=== PATIENT | female | born 1990 | race Caucasian/White ===

== ENCOUNTER 2021-10-27 10:17 | Emergency (ER) | payer BC, SELFPAY ==
[2021-10-27 10:23] VITALS: BP 142/94; PULSE 104; RESP 14; TEMP 36.1; O2SAT 99
[2021-10-27 10:30] VITALS: BP 142/94; PULSE 104; RESP 14; TEMP 36.1; O2SAT 99
--- NOTE | 2021-10-27 11:11 | ED.EAR ---
HPI - Ear Problem General Chief complaint: Ear Stated complaint: ear pain Time Seen by Provider: 10/27/21 11:12 Source: patient, RN notes reviewed and old records reviewed Mode of arrival: ambulatory Limitations: no limitations History of Present Illness HPI Narrative: 30 year old female presents to [facility] care with 3-4 day history of some right ear drainage which is clear with some pain and muffled hearing bilaterally. Patient denies any cough, fevers or any nasal discharge, reports some discomfort which is minimal to her throat but denies any increased pain with swallowing. Patient has been taking Ibuprofen for her symptoms.Patient has not had COVID or influenza vaccines. MD Complaint: ear pain, ear discharge (right) and decreased hearing Location: right ear Treatment prior to arrival: oral analgesic Related Data Allergies Allergy/AdvReac Type Severity Reaction Status Date / Time amoxicillin [From Amoxil] AdvReac Nausea Verified 10/27/21 10:30 Review of Systems Review of Systems: CONSTITUTIONAL: Denies fever, chills, or sweats. EYES: Denies visual changes, redness, or discharge. ENT Denies rhinorrhea,no congestion, some sore throat,right otalgia, hearing muffled bilaterally. CARDIOVASCULAR: Denies chest pain, palpitations, or edema. RESPIRATORY: Denies cough or dyspnea. GASTROINTESTINAL: Denies abdominal pain, nausea, vomiting, or diarrhea. GENITOURINARY: Denies dysuria or hematuria. SKIN: Denies rash or itching. MUSCULOSKELETAL: Denies back pain, joint pain, or myalgia. NEUROLOGIC: Denies headache, numbness, or weakness. PSYCHIATRIC: Denies anxiety or depression. All systems reviewed & are unremarkable except as noted in HPI and below PMFSH Past Medical History Medical History (Updated 10/28/21 @ 13:07 by Felicia Dunlap NP) Fracture, finger Surgical History Surgical History (Updated 10/28/21 @ 13:07 by Felicia Dunlap NP) History of right oophorectomy Previous section x3 Social History Social History (Updated 10/28/21 @ 13:06 by Felicia Dunlap NP) Smoking packs per day: 0.5 Smoking cigarettes per day: 10.0 Years smoked: 10 Smoking pack-years: 5.00 Smoking status: Current every day smoker Tobacco type: cigarettes Alcohol intake: unknown Substance use: unknown Living arrangements: with family Gender identity (if verbalized by the patient): Female Comments At time of signature, agree with nursing past medical, surgical, social and family history. There is no relevant family history pertinent to the presenting complaint Exam Narrative: GENERAL: Well-appearing, well-nourished, obese and in no acute distress. HEAD: Normocephalic, atraumatic. EYES: PERRLA and EOMI. ENT: Nares clear, no rhinorrhea or epistaxis. Mucous membranes moist.Bilateral TM's red with no rupture noted clear to white discharge bilateral ears no irritation to canal.Throat pink with no lesions or exudates no tonsil enlargement. NECK: Supple. no lymphadenopathy CHEST: Clear to auscultation. No respiratory distress.SAO2 99% on room air HEART: Regular rate and rhythm. No murmur heard. Normal peripheral pulses. ABDOMEN: Soft, nontender, nondistended, normal active bowel sounds. EXTREMITIES: Normal range of motion. No edema. SKIN: Warm, dry, no rash. NEURO: No focal deficits. Alert and oriented x3. Course Course Level of Care: Express Care Visit Vital Signs Vital signs: Vital Signs Temperature 36.1 C L 10/27/21 10:23 Pulse Rate 104 H 10/27/21 10:23 Respiratory Rate 14 10/27/21 10:23 Blood Pressure 142/94 H 10/27/21 10:23 Pulse Oximetry 99 10/27/21 10:23 Temperature 36.1 C L 10/27/21 10:30 Pulse Rate 104 H 10/27/21 10:30 Respiratory Rate 14 10/27/21 10:30 Blood Pressure 142/94 H 10/27/21 10:30 Pulse Oximetry 99 10/27/21 10:30 Medical Decision Making Differential Diagnosis Differential Diagnosis: URI, otitis media, viral syndrome, sinusitis, pharyngitis, eustachian
== END 2021-10-27 11:28 | disposition home or self-care (01) ==
PROVIDERS: Emergency Provider Registered Nurse; PCP Internal Medicine
DX: H66.003 Acute suppurative otitis media without spontaneous rupture of ear drum, bilateral (principal); F17.210 Nicotine dependence, cigarettes, uncomplicated
CPT/HCPCS: 99203; G0463